=== PATIENT | female | born 1990 | race Caucasian/White ===

== ENCOUNTER → 2018-05-06 15:11 | Outpatient (CLI) | payer OTHER, SELFPAY ==
[2018-05-06 17:16] LABS: Absolute Lymphocyte Count 2.16 X10^3/ul (0.83-4.51); Basophil# 0.02 X10^3/uL; Basophil% 0.3 % (0-1); Eosinophil# 0.12 X10^3/uL; Eosinophils% 1.5 % (0-5); Hematocrit 40.8 % (37-47); Hemoglobin 12.5 g/dl (12.0-15.0); Lymphocyte # 2.16 X10^3/ul (4.0); Lymphocyte % 27.9 % (19-41); Mean Corp Hgb Conc 30.6 g/gl (32-36); Mean Corpuscular Hgb 24.2 pg (27.0-32.0); Mean Corpuscular Volume 79.1 fL (81-99); Mean Platelet Vol. 10.6 fl (6.2-12.0); Monocyte# 0.43 X10^3/uL; Monocyte% 5.5 % (0-10); Neutrophil # 5.01 X10^3/uL (2.7-7.7); Neutrophil % 64.7 % (47-70); POSITIVE COUNT NO; POSITIVE DIFFERENTIAL NO; POSITIVE MORPHOLOGY NO; Platelet Count 374 K/mm3 (150-450); RBC Distribution Width CV 16.6 % (11.6-14.6); RBC Distribution Width SD 47.9 fl (35.1-43.9); Red Blood Count 5.16 M/mm3 (4.2-5.4); White Blood Count 7.8 K/mm3 (4.4-11.0)
[2018-05-06 17:31] LABS: ALB/GLOB Ratio 0.8 RATIO (0.9-2.4); AST(SGOT) 15 U/L (15-37); Alanine Aminotransfer ALT/SGPT 30 U/L (13-56); Albumin, Serum 3.5 g/dL (3.2-5.0); Alkaline Phosphatase 111 U/L (45-117); Anion Gap 8 (5-15); BUN 12 mg/dL (7-18); BUN/Creat Ratio 16.1 RATIO (10-20); Calcium,Total 9.1 mg/dL (8.5-10.1); Chloride 103 mmol/L (98-107); Creatinine, Serum 0.75 mg/dL (0.55-1.02); EST Glomerular Filtration Rate 97 mL/min (>60); Est Glom Filt Rate - Afr Amer 118 mL/min (>60); Globulin 4.4 g/dL (2.2-4.2); Glucose 82 mg/dL (74-106); Protein, Total 7.9 g/dL (6.4-8.2); Sodium Level 140 mmol/L (136-145); Thyroid Stim Hormone (TSH) 1.86 uIU/mL (0.358-3.74)
== END ==
PROVIDERS: Family Provider Family Medicine; PCP Family Medicine; Visit Provider Family Medicine
DX: E28.2 Polycystic ovarian syndrome (principal); R73.01 Impaired fasting glucose; E03.9 Hypothyroidism, unspecified
CPT/HCPCS: 36415; 80053; 84443; 85025

== ENCOUNTER 2018-06-28 14:53 | Outpatient (RCR) | payer OTHER, SELFPAY | END 2018-06-28 23:59 | disposition home or self-care (01) | LOC: NS 14:53 | PROVIDERS: Family Provider Family Medicine; PCP Family Medicine; Visit Provider Family Medicine | DX: E66.9 Obesity, unspecified (principal); Z68.42 Body mass index [BMI] 45.0-49.9, adult; R73.01 Impaired fasting glucose; E03.9 Hypothyroidism, unspecified; Z71.3 Dietary counseling and surveillance | CPT/HCPCS: 97803 ==

== ENCOUNTER → 2019-05-23 09:08 | Outpatient (CLI) | payer OTHER, SELFPAY ==
[2018-12-25 11:27] VITALS: BMI 49.0
[2019-05-23 12:53] LABS: Hemoglobin A1c 7.2 % (4.2-6.3)
[2019-05-23 13:04] LABS: T4 Free Direct 0.98 ng/dL (0.76-1.46); Thyroid Stim Hormone (TSH) 3.47 uIU/mL (0.358-3.74)
== END ==
PROVIDERS: PCP Family Medicine; Visit Provider Family Medicine
DX: E03.9 Hypothyroidism, unspecified (principal); R73.01 Impaired fasting glucose
CPT/HCPCS: 36415; 83036; 84439; 84443

== ENCOUNTER 2019-10-28 22:12 | Emergency (ER) | payer OTHER, SELFPAY ==
[2018-12-25 11:27] VITALS: BMI 49.0
[2019-10-28 22:13] VITALS: BP 165/86; PULSE 102; RESP 14; TEMP 36.6; O2SAT 98; BMI 47.7
[2019-10-28 22:26] VITALS: BP 165/104
[2019-10-28] MEDS: Acetaminophen 500 MG Tablet 1000 MG PO (23:19)
[2019-10-29] LABS: Absolute Lymphocyte Count 2.18 X10^3/uL (0.83-4.51); Absolute Neutrophil Count 6.5 X10^3/uL (2.0-7.7); Basophil# 0.02 X10^3/uL; Basophil% 0.2 % (0-1); Eosinophil# 0.12 X10^3/uL; Eosinophils% 1.3 % (0-5); Hematocrit 38.9 % (37-47); Lymphocyte # 2.18 X10^3/ul (4.0); Lymphocyte % 23.3 % (19-41); Mean Corp Hgb Conc 30.8 g/dL (32-36); Mean Corpuscular Volume 77.8 fL (81-99); Mean Platelet Vol. 10.8 fl (6.2-12.0); Monocyte# 0.53 X10^3/uL; Monocyte% 5.7 % (0-10); NRBC Flagged by Analyzer 0 % (0-5); Neutrophil # 6.48 X10^3/uL (2.7-7.7); Neutrophil % 69.3 % (47-70); Platelet Count 367 K/mm3 (150-450); RBC Distribution Width CV 17.2 % (11.6-14.6); RBC Distribution Width SD 48.2 fl (35.1-43.9); White Blood Count 9.4 K/mm3 (4.4-11.0)
[2019-10-29 00:23] LABS: Anion Gap 4 (5-15); BUN 14 mg/dL (7-18); BUN/Creat Ratio 16.3 RATIO (10-20); Calcium,Total 8.7 mg/dL (8.5-10.1); Chloride 107 mmol/L (98-107); Creatinine, Serum 0.86 mg/dL (0.55-1.02); EST Glomerular Filtration Rate 82 mL/min (>60); Est Glom Filt Rate - Afr Amer 99 mL/min (>60); Glucose 93 mg/dL (74-106); Potassium 3.8 mmol/L (3.5-5.1); Sodium Level 140 mmol/L (136-145)
[2019-10-29 00:33] LABS: Internal QC Validated? YES +Cl - CLEAR BKGD; Pregnancy, Serum, hCG Quali. NEGATIVE Negative
[2019-10-29 00:51] VITALS: BP 126/78; PULSE 85; RESP 18; O2SAT 97
--- NOTE | 2019-10-29 00:51 | ED.DCSUM_ITS ---
- ER Visit Summary Date of Service: 10/29/19 Chief Complaint: High blood pressure History of Present Illness: The patient is a [address] Sanders. She reports that she was seen today and was given a prescription for lisinopril/hydrochlorothiazide. She got it filled at 8 PM. She has not taken dose because it is supposed be taking in the morning. Patient reports that her blood pressures typically 160?165/90. Tonight it was 186?189/101?104. She reports that she has a headache that is 3 out of 10 in severity. She does have a history of similar headaches. She denies any other complaints. Physical Examination: Vitals: Stable. Afebrile. General: Well-nourished and well-developed. Head: Normocephalic atraumatic. Neck: Supple, no lymphadenopathy. No JVD. Nontender. Cardiovascular: Regular rate and rhythm. No murmurs. Respiratory: No respiratory distress. Clear to auscultation bilaterally. Abdominal: Soft, nontender, nondistended, normal bowel sounds. No guarding, rebound, or peritoneal signs. Back: Nontender. Extremities: Nontender, no edema. Skin: Normal color, no rash. Neurologic: Alert and oriented ?3. Cranial nerves II through XII are intact. Normal strength and sensation. Psych: Normal affect. Test Results: CBC is normal. Chem-7 is normal. test is negative. Emergency Department Course and Treatment: Initial blood pressure was 165/86. In the emergency department this decreased to the 140s over 80s. She is resting comfortably. She was given Tylenol for her headache. Treatment Plan: Patient is instructed to begin her lisinopril/hydrochlorothia zide tomorrow as prescribed. Follow-up with her primary care physician 1 week for another exam. Return to the emergency department for any worsening symptoms. Disposition: To home in improved and stable condition. Impression: 1. Hypertension. This note was generated with [employer]eg[employer] software. It may contain incorrect words, spelling, and punctuation that were not noted in review of the chart prior to signing ED Disposition - Plan for ED Patient: Disposition: Home or Assisted Living Instructions: ED Hypertension New Begin Treatment Referrals: Sumaya Sanders MD [Primary Care Provider] - 1 Week
== END 2019-10-29 01:12 | disposition home or self-care (01) ==
PROVIDERS: Emergency Provider Emergency Medicine; PCP Family Medicine
DX: I10 Essential (primary) hypertension (principal)
CPT/HCPCS: 80048; 84703; 85025; 96374; 99284; A4216

== ENCOUNTER 2019-11-07 11:33 | Outpatient (RCR) | payer OTHER, SELFPAY ==
[2018-12-25 11:27] VITALS: BMI 49.0
== END 2019-11-07 23:59 ==
LOC: NS 11:33
PROVIDERS: PCP Family Medicine; Visit Provider Family Medicine
DX: Z71.3 Dietary counseling and surveillance (principal); E66.9 Obesity, unspecified
CPT/HCPCS: 97802

== ENCOUNTER 2019-11-21 13:54 | Outpatient (RCR) | payer OTHER, SELFPAY | END 2019-11-21 23:59 | disposition home or self-care (01) | LOC: NS 13:54 | PROVIDERS: PCP Family Medicine; Visit Provider Family Medicine | DX: Z71.3 Dietary counseling and surveillance (principal); E66.9 Obesity, unspecified | CPT/HCPCS: 97803 ==

== ENCOUNTER → 2020-04-17 09:30 | Outpatient (CLI) | payer OTHER, SELFPAY ==
[2020-04-17 13:06] LABS: Absolute Lymphocyte Count 2.18 X10^3/uL (0.83-4.51); Absolute Neutrophil Count 4.5 X10^3/uL (2.0-7.7); Basophil# 0.01 X10^3/uL; Basophil% 0.1 % (0-1); Eosinophil# 0.22 X10^3/uL; Hematocrit 41.7 % (37-47); Hemoglobin 12.8 g/dL (12.0-15.0); Lymphocyte # 2.18 X10^3/ul (4.0); Lymphocyte % 29.4 % (19-41); Mean Corp Hgb Conc 30.7 g/dL (32-36); Mean Corpuscular Hgb 24.1 pg (27.0-32.0); Mean Corpuscular Volume 78.5 fL (81-99); Mean Platelet Vol. 10.9 fl (6.2-12.0); Monocyte# 0.43 X10^3/uL; Monocyte% 5.8 % (0-10); NRBC Flagged by Analyzer 0 % (0-5); Neutrophil # 4.54 X10^3/uL (2.7-7.7); Neutrophil % 61.3 % (47-70); Platelet Count 382 K/mm3 (150-450); RBC Distribution Width CV 16.7 % (11.6-14.6); RBC Distribution Width SD 47.1 fl (35.1-43.9); Red Blood Count 5.31 M/mm3 (4.2-5.4); White Blood Count 7.4 K/mm3 (4.4-11.0)
[2020-04-17 13:16] LABS: Vitamin D,25 Hydroxy 12.3 ng/mL
[2020-04-17 13:35] LABS: ALB/GLOB Ratio 0.7 RATIO (0.9-2.4); AST(SGOT) 17 U/L (15-37); Alanine Aminotransfer ALT/SGPT 31 U/L (13-56); Albumin, Serum 3.4 g/dL (3.2-5.0); Alkaline Phosphatase 96 U/L (45-117); Anion Gap 5 (5-15); BUN 12 mg/dL (7-18); BUN/Creat Ratio 14.5 RATIO (10-20); Calcium,Total 8.8 mg/dL (8.5-10.1); Chloride 104 mmol/L (98-107); Cholesterol 161 mg/dL (200); Creatinine, Serum 0.83 mg/dL (0.55-1.02); EST Glomerular Filtration Rate 85 mL/min (>60); Est Glom Filt Rate - Afr Amer 103 mL/min (>60); Globulin 4.6 g/dL (2.2-4.2); Glucose 102 mg/dL (74-106); High Density Lipoprotein 46 mg/dL; Potassium 3.8 mmol/L (3.5-5.1); Sodium Level 138 mmol/L (136-145); Thyroid Stim Hormone (TSH) 2.55 uIU/mL (0.358-3.74); Triglycerides 87 mg/dL; Very Low Density Lipoprotein 17 mg/dL (5-40)
== END ==
PROVIDERS: PCP Family Medicine; Visit Provider Family Medicine
DX: E03.9 Hypothyroidism, unspecified (principal); F32.9 Major depressive disorder, single episode, unspecified; I10 Essential (primary) hypertension; R73.01 Impaired fasting glucose; E28.2 Polycystic ovarian syndrome; E55.9 Vitamin D deficiency, unspecified
CPT/HCPCS: 36415; 80053; 80061; 82306; 83036; 84443; 85025

== ENCOUNTER → 2020-04-19 09:03 | Outpatient (CLI) | payer OTHER, SELFPAY ==
[2020-04-19 08:19] VITALS: BMI 47.9
[2020-04-19 09:17] LABS: Absolute Lymphocyte Count 2.18 X10^3/uL (0.83-4.51); Absolute Neutrophil Count 5.3 X10^3/uL (2.0-7.7); Basophil# 0.03 X10^3/uL; Basophil% 0.4 % (0-1); Eosinophil# 0.25 X10^3/uL; Eosinophils% 3.1 % (0-5); Hematocrit 41.8 % (37-47); Lymphocyte # 2.18 X10^3/ul (4.0); Lymphocyte % 26.7 % (19-41); Mean Corp Hgb Conc 31.1 g/dL (32-36); Mean Corpuscular Hgb 24.4 pg (27.0-32.0); Mean Corpuscular Volume 78.4 fL (81-99); Mean Platelet Vol. 10.2 fl (6.2-12.0); Monocyte# 0.39 X10^3/uL; Monocyte% 4.8 % (0-10); NRBC Flagged by Analyzer 0 % (0-5); Neutrophil # 5.31 X10^3/uL (2.7-7.7); Neutrophil % 64.8 % (47-70); Platelet Count 398 K/mm3 (150-450); RBC Distribution Width CV 16.5 % (11.6-14.6); RBC Distribution Width SD 46.7 fl (35.1-43.9); Red Blood Count 5.33 M/mm3 (4.2-5.4); White Blood Count 8.2 K/mm3 (4.4-11.0)
[2020-04-19 09:35] LABS: Estradiol 39.9 pg/mL; Follicle Stimulating Hormone 2.4 mIU/mL; Luteinizing Hormone 4.4 mIU/mL
[2020-04-22 20:07] LABS: Testosterone, % Free 2.46 % (0.50-2.80); Testosterone, Free 0.79 ng/dL (0.10-0.85); Testosterone, Total 32 ng/dL (8-48)
[2020-04-24 14:39] LABS: HPV APTIMA, High Risk Negative (Negative)
[2020-04-26 13:04] LABS: 17-Hydroxyprogesterone 72 ng/dL (.)
== END ==
PROVIDERS: PCP Family Medicine; Referring Provider Obstetrics & Gynecology; Visit Provider Obstetrics & Gynecology
DX: N93.9 Abnormal uterine and vaginal bleeding, unspecified (principal); Z12.4 Encounter for screening for malignant neoplasm of cervix
CPT/HCPCS: 36415; 82627; 82670; 83001; 83002; 83498; 84402; 84403; 85025; 87624; 88175; 82626; G0145

== ENCOUNTER → 2020-05-01 13:56 | Outpatient (CLI) | payer OTHER, SELFPAY ==
[2020-04-19 08:19] VITALS: BMI 47.9
--- NOTE | 2020-05-01 14:01 | US_ITS ---
STUDY: ULTRASOUND OF THE FEMALE PELVIS - COMPLETE REASON FOR EXAM: Female, 29 years old. AUB LMP: 12/08/2019 TECHNIQUE: Transabdominal and Transvaginal TECHNICAL QUALITY: Adequate. COMPARISON: None. FINDINGS: The uterus is anteverted and is in a midline position. The uterus measures 7.9 x 5.6 x 3.8 cm. Normal uterine cervix. The endometrium measures 12.1 mm in thickness, and is hyperechoic. There is no demonstrated endometrial mass. There is no demonstrated myometrial mass. I.U.D. - The patient does not have an I.U.D. The right ovary is visualized. The right ovary measures 3.7 x 2.6 x 3.0 cm. There is no right ovarian cyst or ovarian mass. There is no visualized right adnexal mass or complex lesion. There is normal arterial and normal venous vascularity. The left ovary is visualized. The left ovary measures 4.6 x 3.3 x 2.8 cm. There is no left ovarian cyst or ovarian mass. There is no visualized left adnexal mass or complex lesion. There is normal arterial and normal venous vascularity. There is no fluid in the cul-de-sac. The bladder is sonographically normal with estimated capacity of 678 mL US/Pelvic (Non ) IMPRESSION: No suspicious sonographic findings Electronically Signed: Hubert Calix MD at 17:27 EST , Service support ,
--- NOTE | 2020-05-01 14:01 | US_ITS ---
STUDY: ULTRASOUND OF THE FEMALE PELVIS - COMPLETE REASON FOR EXAM: Female, 29 years old. AUB LMP: 12/08/2019 TECHNIQUE: Transabdominal and Transvaginal TECHNICAL QUALITY: Adequate. COMPARISON: None. FINDINGS: The uterus is anteverted and is in a midline position. The uterus measures 7.9 x 5.6 x 3.8 cm. Normal uterine cervix. The endometrium measures 12.1 mm in thickness, and is hyperechoic. There is no demonstrated endometrial mass. There is no demonstrated myometrial mass. I.U.D. - The patient does not have an I.U.D. The right ovary is visualized. The right ovary measures 3.7 x 2.6 x 3.0 cm. There is no right ovarian cyst or ovarian mass. There is no visualized right adnexal mass or complex lesion. There is normal arterial and normal venous vascularity. The left ovary is visualized. The left ovary measures 4.6 x 3.3 x 2.8 cm. There is no left ovarian cyst or ovarian mass. There is no visualized left adnexal mass or complex lesion. There is normal arterial and normal venous vascularity. There is no fluid in the cul-de-sac. The bladder is sonographically normal with estimated capacity of 678 mL US/Transvaginal Non- IMPRESSION: No suspicious sonographic findings Electronically Signed: Hubert Calix MD at 17:27 EST , Service support ,
== END ==
PROVIDERS: PCP Family Medicine; Referring Provider Obstetrics & Gynecology; Visit Provider Obstetrics & Gynecology
DX: N93.9 Abnormal uterine and vaginal bleeding, unspecified (principal)
CPT/HCPCS: 76830; 76856

== ENCOUNTER 2021-03-18 12:53 | Emergency (ER) | payer OTHER, SELFPAY ==
[2021-03-18 12:54] VITALS: BP 167/98; PULSE 86; RESP 15; TEMP 35.9; O2SAT 99; BMI 49.4
[2021-03-18 12:56] VITALS: BP 167/98; PULSE 86; RESP 15; TEMP 35.9; O2SAT 99
--- NOTE | 2021-03-18 12:59 | EKG12_ITS ---
Test Reason : CP Blood Pressure : / mmHG Vent. Rate : 081 BPM Atrial Rate : 081 BPM P-R Int : 166 ms QRS Dur : 110 ms QT Int : 356 ms P-R-T Axes : 009 052 016 degrees QTc Int : 413 ms Normal sinus rhythm Normal ECG Confirmed by JORGE A ORTIZ, YADI ([id number]), sports editor REINA VIVEROS ([id number]) on 03/19/2021 2:09:45 PM Referred By: FEDE/KALEN Confirmed By:YADI JULES MD
[2021-03-18 13:56] VITALS: BP 144/88; PULSE 88; RESP 14; TEMP 36.9; O2SAT 97
[2021-03-18 14:00] VITALS: BP 138/85; PULSE 85; RESP 16; TEMP 37.2; O2SAT 98
--- NOTE | 2021-03-18 14:07 | RAD_ITS ---
STUDY: X-RAY CHEST REASON FOR EXAM: Female, 30 years old. Chest pain TECHNIQUE: Single AP portable view of the chest. COMPARISON: None. FINDINGS: EKG electrodes are seen. The lungs are clear and expanded. There is no demonstrated pleural abnormality. Normal size heart. Normal mediastinum and lexy. Normal visualized pulmonary arteries. Normal visualized aortic arch and descending thoracic aorta. Normal visualized thoracic spine. Normal visualized ribs, clavicles, and shoulders. There is no demonstrated abnormality of the visualized soft tissue structures of the upper abdomen. RAD/Chest 1 View (Portable) IMPRESSION: Normal x-ray examination of the chest. Electronically Signed: Owen Rhoades MD at 14:46 EST , Service support ,
--- NOTE | 2021-03-18 14:08 | EDS_ITS ---
HPI History of Present Illness Chief Complaint: Chest Pain Narrative Narrative: 30-year-old female with past medical history of hypertension presents with chest pain that she has had since last Thursdayl history of hypertensionPatient with, approximately 6 days ago. She states its been intermittent and last about 5 minutes. Sometimes it sharp and stabbing the last time was last year sometime., other times it is more of a pressure sensation. She has had this pain in the past when it has happened in the past she has been diagnosed with bronchitis She states, and another time it was a faulty EKG machine that made her come to the emergency department. She states that it is mostly central, but was on the left side today. She denies any radiation to her arm or neck. She was nauseated but no vomiting. No shortness of breath or diaphoresis. She called her primary care physician who told her to be evaluated in the emergency department. [facility] Medical History (Updated 03/18/21 @ 17:00 by Arash Kelsey MD) Diabetes Fatigue Hydradenitis Hypertension Incontinence NECK AND BACK PAIN Shortness of breath Thyroid disease Home Medications metformin 1,000 mg tablet 1,000 mg PO DAILY 12/25/18 [History Last Taken Unknown] lisinopril-hydrochlorothiazide 1 tab PO DAILY 10/28/19 [History Last Taken Unknown] levothyroxine 75 mcg capsule 75 mcg PO DAILY 04/19/20 [History Last Taken Unknown] misoprostol 200 mcg tablet 200 mcg SL .COMPLEX #4 tab 05/23/20 [Rx Last Taken Unknown] Allergy/AdvReac Type Severity Reaction Status Date / Time cephalexin [From Keflex] Allergy Mild SOB Verified 03/18/21 12:57 cortisone Allergy Mild SWELLING/SKIN Verified 03/18/21 12:57 IRRITATION sulfamethoxazole Allergy Mild RASH Verified 03/18/21 12:57 [From Bactrim] trimethoprim [From Bactrim] Allergy Mild RASH Verified 03/18/21 12:57 sesame seed Allergy Food Verified 03/18/21 12:57 Allergy sunflower seed Allergy Food Verified 03/18/21 12:57 Allergy Family History Mother Endometriosis Aunt Endometriosis Surgical History H/O wisdom tooth extraction Social History Smoking Status: Never smoker alcohol intake: never substance use type: does not use caffeine: Yes what type of physical activity do you participate in: none seatbelt use: always do you feel safe at home: Yes additional social history: Single ROS ROS ED ROS Narrative Constitutional: No fever, no chills. HEENT: No sore throat. No neck pain. No loss of vision. No rhinorrhea. Cardiovascular: Midsternal to left-sided chest pain. No palpitations. No pedal edema. Respiratory: No cough, no shortness of breath. Abdominal: No abdominal pain. Positive nausea. No vomiting. Genitourinary: No dysuria. No hematuria. Musculoskeletal: No myalgias. No arthralgias. Neurologic: No headaches. No dizziness. No lightheadedness. Skin: No rash. No change in color. Psychiatric: No depression. No anxiety. EXAM Physical Exam Narrative Exam Narrative: Afebrile. Vital signs noted. HEENT: Normocephalic. Atraumatic. PERRL, EOMI. Neck soft and supple. No point tenderness or step off. Cardiovascular: Regular rate and rhythm. No murmurs, rubs, or gallops appreciated. Respiratory: No tachypnea. Lungs clear to auscultation bilaterally. Gastrointestinal: Abdomen soft, obese, nontender, with normoactive bowel sounds. No rebound or guarding. Neurological: Awake. Alert. Nonfocal, nonlateralizing. Skin: No rash. Normal color. No pallor. Musculoskeletal: No pedal edema. Full range of motion extremities. Const Vital Signs: 03/18/21 12:54 03/18/21 12:56 03/18/21 13:29 Temperature 96.7 F L 96.7 F L Temperature Source Temporal Temporal Pulse Rate 86 86 Respiratory Rate 15 15 Respiratory Effort Short of Breath Blood Pressure 167/98 H 167/98 H Blood Pressure Mean 121 121 Pulse Ox 99 99 Oxygen Delivery Method Room Air Room Air 03/18/21 13:56 03/18/21 14:00 03/18/21 14:07 Temperature 98.4 F 98.9 F Temperature Source Temporal Temporal Pulse Rate 88 85 Respiratory Rate 14 16 Respiratory Effort Blood Pressure 144/88 H 138/85 H Blood Pressure Mean 106 102 Pulse Ox 97 98 Oxygen Delivery Method Room Air Room Air Room Air 03/18/21 16:00 03/18/21 17:37 Temperature Temperature Source Pulse Rate 86 87 Respiratory Rate 16 18 Respiratory Effort Blood Pressure 148/88 H 142/80 H Blood Pressure Mean 108 Pulse Ox 96 100 Oxygen Delivery Method Room Air Heart Score History: Slightly/Non-Suspicious ECG: Normal Age: </= 45 years Risk Factors: >/= 3 Risk Factors or History of CAD Troponin: </= Normal Limit Score: 2 MDM MDM MDM Narrative Medical decision making narrative: Chest pain work-up was pursued. Her EKG d emonstrates normal sinus rhythm at 81 bpm without ectopy or acute ST changes. Chest x-ray 1 view shows normal examination. She has normal CBC in the sense of a normal white count at 7.1, hemoglobin normal at 12.1. Electrolyte panel is grossly unremarkable. Initial high-sensitivity troponin negative at 5. 2-hour troponin is also negative at 7 for negative delta troponin. At this point in time with her heart score of 2 mainly for her risk factors and age, I feel she be discharged safely home with follow-up. She accepts a 2% risk of major coronary artery event in the next 6 weeks. She states she has a follow-up appointment with her primary care physician on , 3 days from now. I encouraged her to keep this. Return instructions to the emergency department were reviewed. Disposition is discharged home in stable condition. Lab Data Attestation: I reviewed the patient's lab results. Labs: Laboratory Results - last 24 hr 03/18/21 03/18/21 03/18/21 13:30 13:30 15:35 WBC 7.1 RBC 5.16 Hgb 12.1 Hct 39.8 MCV 77.1 L MCH 23.4 L MCHC 30.4 L RDW Std Deviation 48.6 H RDW Coeff of [place] 17.4 H Plt Count 344 MPV 10.6 Immature Gran % (Auto) 0.300 Neut % (Auto) 65.7 Lymph % (Auto) 26.3 [place] % (Auto) 4.9 Eos % (Auto) 2.5 Baso % (Auto) 0.3 Absolute Neuts (auto) 4.7 Absolute Lymphs (auto) 1.87 Nucleated RBC % 0 Sodium 140 Potassium 4.0 Chloride 107 Carbon Dioxide 26.0 Anion Gap 7 BUN 13 Creatinine 0.70 Estim Creat Clear Calc 120.58 Est GFR (MDRD) Af Amer 124 Est GFR (MDRD) Non-Af 102 BUN/Creatinine Ratio 18.5 Glucose 102 Calcium 9.0 Troponin I High Sens 5 7 Radiography Diagnostic Testing: Clinical Impression(s) from Imaging Studies Chest X-Ray 03/18/21 14:07 IMPRESSION: Normal x-ray examination of the chest. Electronically Signed: Oewn Rhoades MD at 14:46 EST , Service support , Discharge Plan Triage Chief Complaint: Chest Pain ED Provider: Arash Kelsey Dx/Rx/DC Orders Clinical Impression: Chest pain Instructions: ED Chest Pain, Uncertain Cause Prescriptions: No Action metformin 1,000 mg tablet 1,000 mg PO DAILY RF: 0 levothyroxine 75 mcg capsule 75 mcg PO DAILY RF: 0 misoprostol 200 mcg tablet 200 mcg SL .COMPLEX Qty: 4 RF: 0 lisinopril-hydrochlorothiazide 10-12.5 mg tablet 1 tab PO DAILY RF: 0 Primary Care Provider: Sumaya Sanders Referrals: Sumaya Sanders MD [Primary Care Provider] - 03/21/21 Disposition Disposition: Home, Self Care Discharge Date/Time: 03/18/21 17:38
[2021-03-18 14:18] LABS: Absolute Lymphocyte Count 1.87 X10^3/uL (0.83-4.51); Absolute Neutrophil Count 4.7 X10^3/uL (2.0-7.7); Basophil# 0.02 X10^3/uL; Basophil% 0.3 % (0-1); Eosinophil# 0.18 X10^3/uL; Eosinophils% 2.5 % (0-5); Hematocrit 39.8 % (37-47); Hemoglobin 12.1 g/dL (12.0-15.0); Lymphocyte # 1.87 X10^3/ul (0.83-4.51); Lymphocyte % 26.3 % (19-41); Mean Corp Hgb Conc 30.4 g/dL (32-36); Mean Corpuscular Hgb 23.4 pg (27.0-32.0); Mean Corpuscular Volume 77.1 fL (81-99); Mean Platelet Vol. 10.6 fl (6.2-12.0); Monocyte# 0.35 X10^3/uL; Monocyte% 4.9 % (0-10); NRBC Flagged by Analyzer 0 % (0-5); Neutrophil # 4.68 X10^3/uL (2.7-7.7); Neutrophil % 65.7 % (47-70); Platelet Count 344 K/mm3 (150-450); RBC Distribution Width CV 17.4 % (11.6-14.6); RBC Distribution Width SD 48.6 fl (35.1-43.9); Red Blood Count 5.16 M/mm3 (4.2-5.4); White Blood Count 7.1 K/mm3 (4.4-11.0)
[2021-03-18 14:37] LABS: Anion Gap 7 (5-15); BUN 13 mg/dL (7-18); BUN/Creat Ratio 18.5 RATIO (10-20); Chloride 107 mmol/L (98-107); EST Glomerular Filtration Rate 102 mL/min (>60); Est Glom Filt Rate - Afr Amer 124 mL/min (>60); Estimated Creatinine Clearance 120.58 ml/min; Glucose 102 mg/dL (74-106); Sodium Level 140 mmol/L (136-145); Troponin-I HS 5 pg/mL (3.0-54.0)
[2021-03-18 16:00] VITALS: BP 148/88; PULSE 86; RESP 16; O2SAT 96
[2021-03-18 16:24] LABS: Troponin-I HS 7 pg/mL (3.0-54.0)
[2021-03-18 17:37] VITALS: BP 142/80; PULSE 87; RESP 18; O2SAT 100
== END 2021-03-18 17:38 | disposition home or self-care (01) ==
PROVIDERS: Emergency Provider Emergency Medicine; PCP Family Medicine; Visit Provider Emergency Medicine
DX: R07.9 Chest pain, unspecified (principal); Z68.42 Body mass index [BMI] 45.0-49.9, adult; E11.9 Type 2 diabetes mellitus without complications; R11.0 Nausea; I10 Essential (primary) hypertension; L73.2 Hidradenitis suppurativa; E07.9 Disorder of thyroid, unspecified; Z79.899 Other long term (current) drug therapy; Z79.84 Long term (current) use of oral hypoglycemic drugs; E66.9 Obesity, unspecified
CPT/HCPCS: 71045; 80048; 84484; 85025; 87426; 93005; 99284; A4216

== ENCOUNTER 2021-03-26 22:28 | Emergency (ER) | payer OTHER, SELFPAY ==
[2021-03-26 22:29] VITALS: BP 176/92; PULSE 97; RESP 18; TEMP 35.8; O2SAT 99; BMI 49.4
--- NOTE | 2021-03-26 22:38 | CT_ITS ---
STUDY: CT BRAIN WITHOUT CONTRAST REASON FOR EXAM: Female, 30 years old. Head injury. RADIATION DOSAGE (If Supplied By Facility): CTDIvol = ( 44.99 ) mGy, DLP = ( 812.98 ) mGycm TECHNIQUE: Transaxial CT imaging of the brain was performed without administration of intravenous contrast material. Individualized dose optimization techniques were used for this CT. COMPARISON: No relevant priors. FINDINGS: Normal soft tissue structures. Normal calvarium. Normal size ventricles and extra-axial spaces for the patient''s age. Normal white matter tracts of the cerebral hemispheres. Normal basal ganglia and thalami. Normal brainstem. Normal cerebellum. There is no intracranial hemorrhage. There are no findings of an acute ischemic infarction. Normal visualized paranasal sinuses. CT/Brain/Head without Contrast IMPRESSION: Normal unenhanced CT scan of the brain. Electronically Signed: Franco Marcum DO at 23:06 EST Tel [phone], Service support ,
--- NOTE | 2021-03-26 22:39 | EDS_ITS ---
HPI History of Present Illness Chief Complaint: Head Injury Informant: patient Narrative Narrative: Patient comes in with concern regarding head injury. This afternoon the patient accidentally walked into a hard metal closet emy. She hit the lateral right upper edge of her forehead. She did not lose consciousness or fall. She did develop a headache after this. It is mostly in that local area. She took Tylenol which helped somewhat. She then noticed while she was driving that she had some moments where her vision seemed blurry. She states she has had this before and might need new glasses but she was concerned that it occurred after hitting her head. She also had some transient nausea but no vomiting. She was concerned with a combination of events occurring close together. She is not on any blood thinners including no aspirin or nonsteroidals. She has no numbness tingling weakness or discoordination. She has no abdominal pain or fevers. [facility] Medical History (Updated 03/26/21 @ 22:[address] Negrito Hagen MD) Diabetes Fatigue Hydradenitis Hypertension Incontinence NECK AND BACK PAIN Shortness of breath Thyroid disease Home Medications metformin 1,000 mg tablet 1,000 mg PO DAILY 12/25/18 [History Last Taken Unknown] lisinopril-hydrochlorothiazide 1 tab PO DAILY 10/28/19 [History Last Taken Unknown] Allergy/AdvReac Type Severity Reaction Status Date / Time cephalexin [From Keflex] Allergy Mild SOB Verified 03/26/21 22:31 cortisone Allergy Mild SWELLING/SKIN Verified 03/26/21 22:31 IRRITATION sulfamethoxazole Allergy Mild RASH Verified 03/26/21 22:31 [From Bactrim] trimethoprim [From Bactrim] Allergy Mild RASH Verified 03/26/21 22:31 sesame seed Allergy Food Verified 03/26/21 22:31 Allergy sunflower seed Allergy Food Verified 03/26/21 22:31 Allergy Family History Mother Endometriosis Aunt Endometriosis Surgical History H/O wisdom tooth extraction Social History Smoking Status: Never smoker alcohol intake: never substance use type: does not use caffeine: Yes what type of physical activity do you participate in: none seatbelt use: always do you feel safe at home: Yes additional social history: Single ROS ROS ED Constitutional Constitutional ED: Denies fever(s) Eyes Eyes: Reports blurry vision ENT ENT ED: Denies rhinorrhea or sore throat Respiratory/Chest Respiratory/Chest: Denies cough or dyspnea Gastrointestinal Gastrointestinal: Reports nausea; Denies abdominal pain, diarrhea or vomiting Genitourinary Genitourinary ED: Denies dysuria Musculoskeletal Musculoskeletal: Denies arthralgias, back pain, myalgias or neck pain Integumentary Denies rash Neurologic Neurologic: Reports headache(s); Denies paresthesias or weakness Endocrine Endocrinology: Denies polydipsia or polyuria Hematologic/Lymphatic Hematologic/Lymphatic: Denies easy bleeding or easy bruising Allergic/Immunologic Allergic/Immunologic ED: Denies mouth swelling or urticaria EXAM Physical Exam Const Vital Signs: 03/26/21 22:29 03/26/21 22:35 Temperature 96.5 F L Temperature Source Temporal Pulse Rate 97 Respiratory Rate 18 Respiratory Effort Normal Blood Pressure 176/92 H Blood Pressure Mean 120 Pulse Ox 99 Oxygen Delivery Method Room Air Room Air Positive well nourished and well developed General Appearance ED: well developed and NAD HEENT HEENT Narrative: No indication of daniel contusion or abrasion. atraumatic; Negative for trauma or tenderness Eyes PERRL and EOMs intact bilaterally Neck full ROM General: Negative for tenderness Resp normal respiratory effort and clear to auscultation bilaterally Cardio regular rhythm Rate: regular rate GI normal to inspection, nondistended, normoactive bowel sounds and non-tender Palpation: soft Back/Spine Thoracic Spine / Upper Back: Negative for thoracic spinal tenderness Extremity General Extremety ED: Negative for deformity General Extremity: Negative for deformity Neuro oriented x3, no focal motor deficits, no sensory deficits noted and No gait normal Sensorium / Orientation: alert; Negative for lethargic or stuporous Motor Exam: strength 5/5 throughout Psych mental status grossly normal Skin no rashes or lesions noted and no wounds Trauma: Negative for abrasion Wounds: Negative for wounds noted MDM MDM MDM Narrative Medical decision making narrative: CT shows no acute process. I think patient is safe for discharge. She can use Tylenol Motrin as needed. If she develops further symptoms, visual changes that are persisting, recurrent nausea vomiting, numbness tingling weakness or gait disturbance she should return. Radiography Diagnostic Testing: Clinical Impression(s) from Imaging Studies Brain CT 03/26/21 22:38 IMPRESSION: Normal unenhanced CT scan of the brain. Electronically Signed: Franco MarcumDO at 23:06 EST Tel [phone], Service support , Discharge Plan Triage Chief Complaint: Head Injury ED Provider: Negrito Hagen Dx/Rx/DC Orders Clinical Impression: Closed head injury Instructions: ED Head Injury (Adult) Prescriptions: No Action metformin 1,000 mg tablet 1,000 mg PO DAILY RF: 0 lisinopril-hydrochlorothiazide 10-12.5 mg tablet 1 tab PO DAILY RF: 0 Primary Care Provider: Sumaya Sanders Referrals: Sumaya Sanders MD [Primary Care Provider] - 1 Week if not improving Disposition Disposition: Home, Self Care
[2021-03-26 23:25] VITALS: O2SAT 99
== END 2021-03-26 23:26 | disposition home or self-care (01) ==
LOC: ED 22:46
PROVIDERS: Emergency Provider Emergency Medicine; PCP Family Medicine; Visit Provider Emergency Medicine
DX: S09.90XA Unspecified injury of head, initial encounter (principal); E11.9 Type 2 diabetes mellitus without complications; I10 Essential (primary) hypertension; Z79.84 Long term (current) use of oral hypoglycemic drugs; Z79.899 Other long term (current) drug therapy; W22.09XA Striking against other stationary object, initial encounter; Y93.9 Activity, unspecified; Y92.9 Unspecified place or not applicable
CPT/HCPCS: 70450; 99282

== ENCOUNTER 2021-04-18 08:39 | Outpatient (CLI) | payer OTHER, SELFPAY ==
[2021-04-18 10:17] LABS: Hemoglobin A1c 6.3 % (3.8-5.6)
[2021-04-18 10:20] LABS: BUN 10 mg/dL (7-18); Creatinine, Serum 0.83 mg/dL (0.55-1.02); EST Glomerular Filtration Rate 84 mL/min (>60); Glucose 141 mg/dL (74-106)
[2021-04-18 10:21] LABS: ALB/GLOB Ratio 0.7 RATIO (0.9-2.4); AST(SGOT) 11 U/L (15-37); Alanine Aminotransfer ALT/SGPT 32 U/L (13-56); Albumin, Serum 3.2 g/dL (3.2-5.0); Alkaline Phosphatase 92 U/L (45-117); Anion Gap 5 (5-15); BUN/Creat Ratio 12.1 RATIO (10-20); Calcium,Total 8.4 mg/dL (8.5-10.1); Chloride 103 mmol/L (98-107); Cholesterol 128 mg/dL (200); Est Glom Filt Rate - Afr Amer 102 mL/min (>60); Globulin 4.4 g/dL (2.2-4.2); High Density Lipoprotein 44 mg/dL; Microalbumin,Random Urine 26.1 mg/L (NO RANGE EST.); Microalbumin:Creatinine Ratio 15.7 mg/g CRE (<30 mg/g CRE); Potassium 3.8 mmol/L (3.5-5.1); Protein, Total 7.6 g/dL (6.4-8.2); Sodium Level 137 mmol/L (136-145); Thyroid Stim Hormone (TSH) 3.05 uIU/mL (0.358-3.74); Triglycerides 86 mg/dL; Very Low Density Lipoprotein 17 mg/dL (5-40)
== END 2021-04-18 23:59 | disposition home or self-care (01) ==
LOC: MTLAB 08:40
PROVIDERS: PCP Family Medicine; Referring Provider Family Medicine; Visit Provider Family Medicine
DX: I10 Essential (primary) hypertension (principal); E11.9 Type 2 diabetes mellitus without complications; E03.9 Hypothyroidism, unspecified
CPT/HCPCS: 36415; 80053; 80061; 82043; 82570; 83036; 84443

== ENCOUNTER 2021-10-30 22:14 | Emergency (ER) | payer OTHER, SELFPAY ==
[2021-10-30 22:15] VITALS: BP 218/86; PULSE 106; RESP 16; TEMP 36.6; O2SAT 96; BMI 50.8
--- NOTE | 2021-10-30 22:24 | EKG12_ITS ---
Test Reason : DYSRHYTHMIA Blood Pressure : / mmHG Vent. Rate : 086 BPM Atrial Rate : 086 BPM P-R Int : 166 ms QRS Dur : 094 ms QT Int : 358 ms P-R-T Axes : 015 033 011 degrees QTc Int : 428 ms Normal sinus rhythm Normal ECG Confirmed by MARLINE ORTIZ, MASOOD ([id number]), managing editor KASH MOMIN ([id number]) on 10/31/2021 1:29:59 PM Referred By: KALEN Confirmed By:HAYDEN HORAN MD
--- NOTE | 2021-10-30 22:26 | EDS_ITS ---
HPI History of Present Illness Chief Complaint: Lower Extremity Injury Detail of Chief Complaint: Leg pain, paresthesias Informant: patient Onset/Context/Timing Onset: Days Context: Gradual Onset Current Severity: Mild Maximum Severity: Moderate Narrative Narrative: Patient presents with 2-day history of right leg pain. She points to the right posterior thigh. She does not know of any injury or change in activity. Today she is felt like her leg is tighter and had some paresthesias in her toes. Patient does report history of diabetes and states her blood sugars have been fairly poorly controlled. She is been working recently to try to get them under tighter control. She was also noted to be significantly hypertensive on arrival at 218/86. She states she took her evening blood pressure medicine just prior to arrival. She reports having chronic intermittent chest pain with some shortness of breath. She does not feel that this is significantly changed recently. [facility] Medical History Diabetes Fatigue Hydradenitis Hypertension Incontinence NECK AND BACK PAIN Shortness of breath Thyroid disease Home Medications metformin 1,000 mg tablet 1,000 mg PO DAILY 12/25/18 [History Last Taken Unknown] lisinopril 10 mg-hydrochlorothiazide 12.5 mg tablet 1 tab PO DAILY 10/28/19 [History Last Taken Unknown] naproxen 500 mg tablet (Naprosyn) 500 mg PO BID PRN pain #20 tabs 10/30/21 [Rx Last Taken Unknown] Allergy/AdvReac Type Severity Reaction Status Date / Time cephalexin [From Keflex] Allergy Mild SOB Verified 10/30/21 22:14 cortisone Allergy Mild SWELLING/SKIN Verified 10/30/21 22:14 IRRITATION sulfamethoxazole Allergy Mild RASH Verified 10/30/21 22:14 [From Bactrim] trimethoprim [From Bactrim] Allergy Mild RASH Verified 10/30/21 22:14 sesame seed Allergy Food Verified 10/30/21 22:14 Allergy sunflower seed Allergy Food Verified 10/30/21 22:14 Allergy Family History Mother Endometriosis Aunt Endometriosis Surgical History H/O wisdom tooth extraction Social History Smoking Status: Never smoker alcohol intake: never substance use type: does not use caffeine: Yes what type of physical activity do you participate in: none seatbelt use: always do you feel safe at home: Yes additional social history: Single ROS ROS ED Constitutional Constitutional ED: Denies chills or fever(s) Eyes Eyes: Denies change in vision or discharge from eye(s) ENT ENT ED: Denies discharge from eye(s), rhinorrhea or sore throat Cardiovascular Cardiovascular: Reports chest pain; Denies palpitations Respiratory/Chest Respiratory/Chest: Reports dyspnea; Denies cough Gastrointestinal Gastrointestinal: Denies abdominal pain, diarrhea, nausea or vomiting Genitourinary Genitourinary ED: Denies difficulty urinating or dysuria Musculoskeletal Musculoskeletal: Reports extremity pain; Denies back pain Integumentary Denies Abrasions or rash Neurologic Neurologic: Denies headache(s) or weakness Psychiatric Psychiatric: Denies anxiety or depression Allergic/Immunologic Allergic/Immunologic ED: Denies lip swelling or urticaria EXAM Physical Exam Const Vital Signs: 10/30/21 22:15 10/30/21 23:32 Temperature 97.9 F Temperature Source Temporal Pulse Rate 106 H 88 Respiratory Rate 16 14 Blood Pressure 218/86 H 149/81 H Blood Pressure Mean 130 103 Pulse Ox 96 Oxygen Delivery Method Room Air Positive well nourished and well developed General Appearance ED: well developed HEENT Reports normocephalic and head/scalp atraumatic Eyes PERRL and EOMs intact bilaterally Neck supple Chest Wall inspection of chest normal and palpation of chest normal Resp normal respiratory effort and clear to auscultation bilaterally Cardio regular rate and regular rhythm GI normal to inspection, nondistended, normoactive bowel sounds Palpation: soft Extremity normal to inspection Extremity Narrative: No reproducible tenderness to palpation. No significant edema. Strong distal pulses. Good cap refill. Neuro oriented x3 Neuro Narrative: Patient can feel light sensation over her right lower extremity but states it does not quite feel normal. 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 EKG, chest x-ray, lab work obtained. Venous ultrasound of the right lower extremity ordered. Lab Data Attestation: I reviewed the patient's lab results. Labs: Laboratory Results - last 24 hr 10/30/21 10/30/21 11:27 22:37 WBC 9.7 RBC 5.45 H Hgb 12.3 Hct 40.2 MCV 73.8 L MCH 22.6 L MCHC 30.6 L RDW Std Deviation 48.1 H RDW Coeff of Domingo 19.3 H Plt Count 387 MPV 10.2 Immature Gran % (Auto) 0.300 Neut % (Auto) 67.1 Lymph % (Auto) 24.8 [place] % (Auto) 6.1 Eos % (Auto) 1.5 Baso % (Auto) 0.2 Absolute Neuts (auto) 6.5 Absolute Lymphs (auto) 2.41 Nucleated RBC % 0 Sodium 138 Potassium 3.6 Chloride 104 Carbon Dioxide 29.0 Anion Gap 5 BUN 14 Creatinine 0.92 Estim Creat Clear Calc 94.05 Est GFR (MDRD) Af Amer 90 Est GFR (MDRD) Non-Af 74 BUN/Creatinine Ratio 15.2 Glucose 114 H Calcium 9.0 Troponin I High Sens 4 Radiography Chest X-Ray - ED: 1 View, Read by ED Physician, Normal, Heart, Lungs and Mediastinum Diagnostic Testing: Clinical Impression(s) from Imaging Studies Venous Duplex 10/30/21 22:28 IMPRESSION: Normal venous Doppler ultrasound of the lower extremity. Electronically Signed: Kartik Foster MD at 23:10 EDT , Chest X-Ray 10/30/21 22:55 IMPRESSION: No evidence of active intrathoracic disease. Electronically Signed: Alley Booker MD at 23:18 EDT , EKG Initial EKG: Attestation: I personally reviewed and interpreted this EKG as follows: Interpretation: Sinus Rhythm (Sinus 86 with no acute ischemia.) Treatment and Re-Evaluation Narrative: Repeat evaluation patient resting comfortably. Blood pressure is 149/81. She was not given any additional medication for her blood pressure. Lab work is unremarkable as well as EKG and chest x-ray. Venous ultrasound of the right leg reveals no evidence of DVT. We did discuss possibility of developing diabetic neuropathy. Her blood sugar tonight is only 114. She will be treated with a course of naproxen. She will follow-up with her primary care physician. Discharge Plan Triage Chief Complaint: Lower Extremity Injury ED Provider: Nathaly Ang Dx/Rx/DC Orders Clinical Impression: Leg pain, right, Paresthesias Instructions: ED Contusion, Lower Extremity, ED Paraesthesias Prescriptions: New naproxen [Naprosyn] 500 mg tablet 500 mg PO BID PRN (Reason: pain) Qty: 20 0RF No Action metformin 1,000 mg tablet 1,000 mg PO DAILY lisinopril-hydrochlorothiazide 10-12.5 mg tablet 1 tab PO DAILY Label Comments: RX FILLED 10/27. PT HAS NOT TAKEN ANY DOSES. Primary Care Provider: Sumaya Sanders Referrals: Sumaya Sanders MD [Primary Care Provider] - 10-14 Days if not better Disposition Disposition: Home, Self Care
--- NOTE | 2021-10-30 22:28 | US_ITS ---
STUDY: VENOUS DOPPLER ULTRASOUND - RIGHT LOWER EXTREMITY REASON FOR EXAM: Female, 31 years old. RT THIGH PAIN /AND NUMBNESS IN TOES TECHNIQUE: Ultrasound evaluation of the deep vein system to include klein-scale imaging and compression was performed. Klein-scale imaging and Doppler sonographic evaluation, including duplex spectral analysis and qualitative color flow sonography, was performed. COMPARISON: None. FINDINGS: Common Femoral Vein: Normal compression, spontaneity and augmentation. Normal color Doppler. Common Femoral Vein/Greater Saphenous Junction: Normal compression, spontaneity and augmentation. Normal color Doppler. Deep Femoral Vein: Normal compression, spontaneity and augmentation. Normal color Doppler. Femoral Proximal: Normal compression, spontaneity and augmentation. Normal color Doppler. Femoral Middle: Normal compression, spontaneity and augmentation. Normal color Doppler. Femoral Distal: Normal compression, spontaneity and augmentation. Normal color Doppler. Popliteal Vein: Normal compression, spontaneity and augmentation. Normal color Doppler. Posterior Tibial Vein: Normal compression, spontaneity and augmentation. Normal color Doppler. Peroneal Vein: Normal compression, spontaneity and augmentation. Normal color Doppler. US/Venous Duplex Imag/Limited/Uni IMPRESSION: Normal venous Doppler ultrasound of the lower extremity. Electronically Signed: Kartik Foster MD at 23:10 EDT ,
[2021-10-30 22:48] LABS: Absolute Lymphocyte Count 2.41 X10^3/uL (0.83-4.51); Absolute Neutrophil Count 6.5 X10^3/uL (2.0-7.7); Basophil# 0.02 X10^3/uL; Basophil% 0.2 % (0-1); Eosinophil# 0.15 X10^3/uL; Eosinophils% 1.5 % (0-5); Hematocrit 40.2 % (37-47); Hemoglobin 12.3 g/dL (12.0-15.0); Lymphocyte # 2.41 X10^3/ul (0.83-4.51); Lymphocyte % 24.8 % (19-41); Mean Corp Hgb Conc 30.6 g/dL (32-36); Mean Corpuscular Hgb 22.6 pg (27.0-32.0); Mean Corpuscular Volume 73.8 fL (81-99); Mean Platelet Vol. 10.2 fl (6.2-12.0); Monocyte# 0.59 X10^3/uL; Monocyte% 6.1 % (0-10); NRBC Flagged by Analyzer 0 % (0-5); Neutrophil # 6.51 X10^3/uL (2.7-7.7); Neutrophil % 67.1 % (47-70); Platelet Count 387 K/mm3 (150-450); RBC Distribution Width CV 19.3 % (11.6-14.6); RBC Distribution Width SD 48.1 fl (35.1-43.9); Red Blood Count 5.45 M/mm3 (4.2-5.4); White Blood Count 9.7 K/mm3 (4.4-11.0)
--- NOTE | 2021-10-30 22:55 | RAD_ITS ---
STUDY: X-RAY CHEST REASON FOR EXAM: Female, 31 years old. cp TECHNIQUE: AP portable. 11:05 PM. COMPARISON: 03/18/2021. FINDINGS: LUNGS: No consolidation. No pneumothorax. MEDIASTINUM: Unremarkable. CARDIAC SILHOUETTE: Not enlarged. BONES AND SOFT TISSUES: No acute abnormalities. RAD/Chest 1 View (Portable) IMPRESSION: No evidence of active intrathoracic disease. Electronically Signed: Alley Booker MD at 23:18 EDT ,
[2021-10-30 23:08] LABS: Anion Gap 5 (5-15); BUN 14 mg/dL (7-18); BUN/Creat Ratio 15.2 RATIO (10-20); Chloride 104 mmol/L (98-107); Creatinine, Serum 0.92 mg/dL (0.55-1.02); EST Glomerular Filtration Rate 74 mL/min (>60); Est Glom Filt Rate - Afr Amer 90 mL/min (>60); Estimated Creatinine Clearance 94.05 ml/min; Glucose 114 mg/dL (74-106); Potassium 3.6 mmol/L (3.5-5.1); Sodium Level 138 mmol/L (136-145); Troponin-I HS 4 pg/mL (3.0-54.0)
[2021-10-30 23:32] VITALS: BP 149/81; PULSE 88; RESP 14
[2021-10-30] MEDS: Ketorolac 30 MG/ML Syringe IV (23:39)
[2021-10-30 23:43] VITALS: BP 145/70; PULSE 80; RESP 18; O2SAT 100
[2021-10-30 23:45] LABS: Bedside Glucose 116 mg/dL (74-106)
== END 2021-10-30 23:44 | disposition home or self-care (01) ==
PROVIDERS: Emergency Provider Emergency Medicine; PCP Family Medicine; Visit Provider Emergency Medicine
DX: M79.604 Pain in right leg (principal); R20.2 Paresthesia of skin
CPT/HCPCS: 71045; 80048; 82962; 84484; 85025; 93005; 93971; 99282; A4216

== ENCOUNTER 2021-11-02 12:22 | Emergency (ER) | payer OTHER, SELFPAY ==
[2021-11-02 12:23] VITALS: BP 174/92; PULSE 82; RESP 14; TEMP 36.8; O2SAT 97; BMI 50.8
--- NOTE | 2021-11-02 12:50 | EKG12_ITS ---
Test Reason : CHEST PAIN Blood Pressure : / mmHG Vent. Rate : 078 BPM Atrial Rate : 078 BPM P-R Int : 164 ms QRS Dur : 096 ms QT Int : 376 ms P-R-T Axes : 029 030 003 degrees QTc Int : 428 ms Normal sinus rhythm Normal ECG Confirmed by JORGE A ORTIZ, YADI ([id number]), purchase request editor KASH MOMIN ([id number]) on 11/05/2021 7:55:17 AM Referred By: BHAVIN Confirmed By:YADI JULES MD
--- NOTE | 2021-11-02 12:50 | RAD_ITS ---
STUDY: X-RAY CHEST REASON FOR EXAM: Female, 31 years old. Chest pain TECHNIQUE: Single AP portable view of the chest. COMPARISON: Comparison is made with prior study 10/30/2021. FINDINGS: EKG electrodes are seen. The lungs are clear and expanded. There is no demonstrated pleural abnormality. Normal size heart. Normal mediastinum and lexy. Normal visualized pulmonary arteries. Normal visualized aortic arch and descending thoracic aorta. Normal visualized thoracic spine. Normal visualized ribs, clavicles, and shoulders. There is no demonstrated abnormality of the visualized soft tissue structures of the upper abdomen. RAD/Chest 1 View (Portable) IMPRESSION: Normal x-ray examination of the chest. Electronically Signed: Owen Rhoades MD at 8:21 EDT ,
[2021-11-02 12:51] VITALS: O2SAT 96
[2021-11-02 13:10] LABS: Absolute Lymphocyte Count 1.57 X10^3/uL (0.83-4.51); Absolute Neutrophil Count 4.4 X10^3/uL (2.0-7.7); Basophil# 0.02 X10^3/uL; Basophil% 0.3 % (0-1); Eosinophils% 1.6 % (0-5); Hemoglobin 11.7 g/dL (12.0-15.0); Lymphocyte # 1.57 X10^3/ul (0.83-4.51); Lymphocyte % 24.4 % (19-41); Mean Corp Hgb Conc 30.8 g/dL (32-36); Mean Corpuscular Hgb 22.6 pg (27.0-32.0); Mean Corpuscular Volume 73.5 fL (81-99); Mean Platelet Vol. 10.2 fl (6.2-12.0); Monocyte# 0.33 X10^3/uL; Monocyte% 5.1 % (0-10); NRBC Flagged by Analyzer 0 % (0-5); Neutrophil % 68.4 % (47-70); Platelet Count 347 K/mm3 (150-450); RBC Distribution Width CV 18.5 % (11.6-14.6); RBC Distribution Width SD 47.9 fl (35.1-43.9); Red Blood Count 5.17 M/mm3 (4.2-5.4); White Blood Count 6.4 K/mm3 (4.4-11.0)
[2021-11-02 13:29] LABS: Anion Gap 5 (5-15); BUN 14 mg/dL (7-18); BUN/Creat Ratio 19.7 RATIO (10-20); Calcium,Total 8.9 mg/dL (8.5-10.1); Chloride 105 mmol/L (98-107); Creatinine, Serum 0.71 mg/dL (0.55-1.02); EST Glomerular Filtration Rate 100 mL/min (>60); Est Glom Filt Rate - Afr Amer 121 mL/min (>60); Estimated Creatinine Clearance 121.87 ml/min; Glucose 122 mg/dL (74-106); Potassium 3.8 mmol/L (3.5-5.1); Sodium Level 137 mmol/L (136-145); Troponin-I HS 4 pg/mL (3.0-54.0)
--- NOTE | 2021-11-02 13:56 | ED.VIS.CHEST ---
HPI History of Present Illness Chief Complaint: Chest Pain Narrative Narrative: 31-year-old female presenting with chest pain which started this morning. She states that feels like a little bit of pressure. It lasted a couple of hours. Patient had this a couple of days ago and was seen in the ER and had a negative cardiac work-up. She also had a negative DVT study. No history of DVT/PE and no risk factors except for obesity. Patient states that she does not have any cardiac conditions but is a prediabetic and she does have hypertension. No fevers, chills, body aches. She does state that she believes she has anxiety and this is not diagnosed. She has not seen her primary care physician about this. She states that she does feel very anxious and she was breathing heavy earlier and felt paresthesias in her hands. [facility] Medical History Diabetes Fatigue Hydradenitis Hypertension Incontinence NECK AND BACK PAIN Shortness of breath Thyroid disease Home Medications metformin 1,000 mg tablet 1,000 mg PO DAILY 12/25/18 [History Last Taken Unknown] lisinopril 10 mg-hydrochlorothiazide 12.5 mg tablet 1 tab PO DAILY 10/28/19 [History Last Taken Unknown] naproxen 500 mg tablet (Naprosyn) 500 mg PO BID PRN pain #20 tabs 10/30/21 [Rx Last Taken Unknown] Allergy/AdvReac Type Severity Reaction Status Date / Time cephalexin [From Keflex] Allergy Mild SOB Verified 11/02/21 12:23 cortisone Allergy Mild SWELLING/SKIN Verified 11/02/21 12:23 IRRITATION sulfamethoxazole Allergy Mild RASH Verified 11/02/21 12:23 [From Bactrim] trimethoprim [From Bactrim] Allergy Mild RASH Verified 11/02/21 12:23 sesame seed Allergy Food Verified 11/02/21 12:23 Allergy sunflower seed Allergy Food Verified 11/02/21 12:23 Allergy Family History Mother Endometriosis Aunt Endometriosis Surgical History H/O wisdom tooth extraction Social History Smoking Status: Never smoker alcohol intake: never substance use type: does not use caffeine: Yes what type of physical activity do you participate in: none seatbelt use: always do you feel safe at home: Yes additional social history: Single ROS ROS ED Constitutional Constitutional ED: Denies chills or fever(s) Eyes Eyes: Denies blurry vision or change in vision ENT ENT ED: Denies rhinorrhea or sore throat Cardiovascular Cardiovascular: Reports as per HPI Respiratory/Chest Respiratory/Chest: Reports dyspnea; Denies cough Gastrointestinal Gastrointestinal: Denies abdominal pain or constipation Genitourinary Genitourinary ED: Denies dysuria or hematuria Musculoskeletal Musculoskeletal: Denies arthralgias or back pain Integumentary Denies abscess Neurologic Neurologic: Denies headache(s) Psychiatric Psychiatric: Reports anxiety; Denies suicidal ideation or suicidal thoughts EXAM Physical Exam Const Vital Signs: 11/02/21 12:23 11/02/21 12:33 11/02/21 12:51 Temperature 98.2 F Temperature Source Temporal Pulse Rate 82 Respiratory Rate 14 Respiratory Effort Normal Blood Pressure 174/92 H Blood Pressure Mean 119 Pulse Ox 97 96 Oxygen Delivery Method Room Air Room Air Positive well nourished General Appearance ED: NAD; Negative for pallor HEENT Reports TM's clear and moist mucous membranes normocephalic Tympanic Membrane ED: Yes TM's clear Eyes PERRL and EOMs intact bilaterally Neck no lymphadenopathy Chest Wall inspection of chest normal Resp normal respiratory effort and clear to auscultation bilaterally Auscultation: Negative for rales, rhonchi or wheezes Cardio regular rate and regular rhythm Neuro oriented x3 and CN's II-XII intact bilaterally Sensorium / Orientation: awake and alert Psych Mood & Affect: anxious and tearful Skin General Skin Exam: Negative for jaundice or pallor Heart Score History: Slightly/Non-Suspicious ECG: Normal Age: </= 45 years Risk Factors: >/= 3 Risk Factors or History of CAD Troponin: </= Normal Limit Score: 2 MDM MDM MDM Narrative Medical decision making narrative: Patient presenting with chest pain. She had a chest pain work-up the other day which was normal. She also had a DVT study of the right lower extremity which was normal. She is PERC negative. I obtained a chest x-ray today was on my interpretation shows no acute cardiopulmonary process. Her CBC and BMP are unremarkable. Her high-sensitivity troponin is 4 which is what it was 2 days ago. I do suspect a component of anxiety as she is very tearful and states she is very anxious. She states she does have concern because of her weight. I recommended to her that she see her primary for follow-up and get medical clearance so that she can start an exercise regimen to address that. She is counseled to take her regular medications of lisinopril HCTZ metformin as well. I did recommend that she see her primary care provider for her anxiety as this needs to be addressed as well. She was amenable to this. Impression: 1. Chest pain 2. Anxiety 3. Paresthesia Lab Data Attestation: I reviewed the patient's lab results. Labs: Laboratory Results - last 24 hr 11/02/21 11/02/21 13:00 13:00 WBC 6.4 RBC 5.17 Hgb 11.7 L Hct 38.0 MCV 73.5 L MCH 22.6 L MCHC 30.8 L RDW Std Deviation 47.9 H RDW Coeff of [place] 18.5 H Plt Count 347 MPV 10.2 Immature Gran % (Auto) 0.200 Neut % (Auto) 68.4 Lymph % (Auto) 24.4 [place] % (Auto) 5.1 Eos % (Auto) 1.6 Baso % (Auto) 0.3 Absolute Neuts (auto) 4.4 Absolute Lymphs (auto) 1.57 Nucleated RBC % 0 Sodium 137 Potassium 3.8 Chloride 105 Carbon Dioxide 27.0 Anion Gap 5 BUN 14 Creatinine 0.71 Estim Creat Clear Calc 121.87 Est GFR (MDRD) Af Amer 121 Est GFR (MDRD) Non-Af 100 BUN/Creatinine Ratio 19.7 Glucose 122 H Calcium 8.9 Troponin I High Sens 4 Discharge Plan Triage Chief Complaint: Chest Pain ED Provider: Ken Allen Dx/Rx/DC Orders Prescriptions: No Action metformin 1,000 mg tablet 1,000 mg PO DAILY lisinopril-hydrochlorothiazide 10-12.5 mg tablet 1 tab PO DAILY Label Comments: RX FILLED 10/27. PT HAS NOT TAKEN ANY DOSES. naproxen [Naprosyn] 500 mg tablet 500 mg PO BID PRN (Reason: pain) Qty: 20 0RF Primary Care Provider: Sumaya Sanders Referrals: Sumaya Sanders MD [Primary Care Provider] -
[2021-11-02 14:10] VITALS: BP 145/77; PULSE 77; RESP 18; O2SAT 98
== END 2021-11-02 14:14 | disposition home or self-care (01) ==
PROVIDERS: Emergency Provider Student in an Organized Health Care Education/Training Program; PCP Family Medicine; Visit Provider Student in an Organized Health Care Education/Training Program
DX: R07.9 Chest pain, unspecified (principal); F41.9 Anxiety disorder, unspecified; R20.2 Paresthesia of skin
CPT/HCPCS: 71045; 80048; 84484; 85025; 93005; 99283; A4216